=== PATIENT | male | born 1995 | race Caucasian/White ===

== ENCOUNTER 2022-11-15 22:08 | Emergency (ER) | payer OTHER ==
[~2022-11-15] VITALS: Ht 175.3 cm; Wt 68.0 kg
[2022-11-15] MEDS ORDERED: LEVE250T2 PO (22:26)
--- NOTE | 2022-11-15 22:46 | NUR ---
Placed in room 4A at this time.
[2022-11-15 22:50] LABS: HEMATOCRIT 48.3 % (36.7-47.1); MEAN CORPUSCULAR HEMOGLOBIN 29.9 uug (23.8-33.4); PLATELET COUNT (AUTO) 288 K/uL (152-348)
[2022-11-15 22:52] LABS: CREATININE 0.9 mg/dL (0.6-1.3); MAGNESIUM 1.9 mg/dL (1.8-2.4); POTASSIUM 3.6 mmol/L (3.5-5.1)
[2022-11-15] MEDS ORDERED: LEVE1000 PO (22:52)
[2022-11-15] MEDS ORDERED: LORA2TAB95 PO (23:48)
--- NOTE | 2022-11-16 00:12 | NUR ---
Patient discharged to home in stable condition. Written and verbal after care instructions given. Patient verbalizes understanding of instructions. Stressed follow up or return to ER for worsening s/s. Patient out of ER with steady gait, no acute signs of distress, VSS, all belongings taken, provided with copies of lab results, IV site discontinued.
[2022-11-16 00:13] VITALS: BP 130/90
== END 2022-11-16 00:23 | disposition home or self-care (01) ==
LOC: ER 22:10
DX: R56.9 Unspecified convulsions (principal); Z79.899 Other long term (current) drug therapy
CPT/HCPCS: 36415; 83735; 85025; A4663